=== PATIENT | female | born 1970 | race Caucasian/White ===

== ENCOUNTER 2018-03-22 12:23 | Emergency (ER) | payer OTHER, BC ==
[2018-03-22] MEDS ORDERED: Sodium Chloride 0.9% 10 ML Syringe FLUSH PRN (14:48)
[2018-03-22] MEDS ORDERED: HYDROmorphone 0.5 MG/0.5 ML SYRINGE IVPUSH ONE ×2 (14:52→18:12)
[2018-03-22] MEDS ORDERED: Metoclopramide 10 MG/2 ML SDV IVPUSH ONE (14:52)
[2018-03-22] MEDS ORDERED: Sodium Chloride 0.9% 1,000 ML IV SCH (15:00)
--- NOTE | 2018-03-22 15:17 | CT ---
Head CT Technique: Multiple axial sections through the brain were obtained. Intravenous contrast was not utilized. Comparison: No previous intracranial imaging. Findings: Ventricles along with basal cisterns and sulci with convexities are within normal limits for the patient's age. No abnormal parenchymal densities are seen. No evidence of intracranial hemorrhage. No midline shift or mass effect is seen. Bone window settings were reviewed which shows the visualized sinuses are clear. No acute calvarial abnormality is appreciated. Impression: 1. Nothing acute is seen on noncontrast head CT exam. Diagnostic code #1
--- NOTE | 2018-03-22 15:21 | CT ---
CT cervical spine Technique: Multiple axial sections were obtained from above C1 inferiorly to the mid T3 level. Reconstructed sagittal and coronal images were reviewed. Findings: Slight degenerative change is noted within the upper apophyseal joints. Mild disc space narrowing is noted at C5-6 with mild anterior osteophytes. Vertebral body heights are maintained. Slight posterior osteophytes are noted at C3-4 primarily due to the posterolateral left side. Small calcification is seen within the posterior disc at C3-4 which is felt to be degenerative. Vertebral bodies and posterior arches are intact. No fracture is seen. Mild left-sided neural foraminal stenosis noted at C2-3. Other neural foramina are patent. No bony central canal stenosis is seen. Mild scoliosis is seen. Slight degenerative change is noted within the uncovertebral joints within the left side of C2-3, C3-4 and C5-6. Impression: 1. Mild degenerative change as noted above. 2. Scoliosis. 3. Nothing acute is seen on CT study of the cervical spine. Diagnostic code #2
--- NOTE | 2018-03-22 15:33 | US ---
Left lower extremity deep venous ultrasound: Duplex and color flow imaging was obtained the left common femoral, proximal greater saphenous, superficial femoral, popliteal, posterior tibial and peroneal veins. Right common femoral vein was also evaluated. Findings: Normal phasic flow and augmentation is seen. Impression: 1. No evidence of deep venous thrombosis within the left lower extremity or within the right common femoral vein. Diagnostic code #1
[2018-03-22] MEDS ORDERED: Ketorolac 30 MG/ML SDV IVPUSH SCH (18:15)
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
== END 2018-03-22 19:10 | disposition home or self-care (01) ==
LOC: JD.ED 12:23
DX: S06.0X1A Concussion with loss of consciousness of 30 minutes or less, initial encounter (principal); S16.1XXA Strain of muscle, fascia and tendon at neck level, initial encounter; S00.03XA Contusion of scalp, initial encounter; S80.12XA Contusion of left lower leg, initial encounter; F17.210 Nicotine dependence, cigarettes, uncomplicated; Z91.030 Bee allergy status; Z88.7 Allergy status to serum and vaccine; Z88.5 Allergy status to narcotic agent; W18.00XA Striking against unspecified object with subsequent fall, initial encounter; W10.9XXA Fall (on) (from) unspecified stairs and steps, initial encounter; Y92.009 Unspecified place in unspecified non-institutional (private) residence as the place of occurrence of the external cause
CPT/HCPCS: 36415; 70450; 72125; 80053; 85025; 93971; 96361; 96374; 96375; 96376; 99284; J1170; J1885; J2765; J7040; J7050

== ENCOUNTER 2019-01-12 13:08 | Emergency (ER) | payer OTHER ==
[2019-01-12] MEDS ORDERED: Sodium Chloride 0.9% 10 ML Syringe FLUSH PRN (13:41)
[2019-01-12] MEDS ORDERED: Famotidine 20 MG/2 ML SDV IVPUSH ONE (13:43)
[2019-01-12] MEDS ORDERED: HYDROmorphone 0.5 MG/0.5 ML Syringe IVPUSH ONE ×2 (13:43→14:58)
[2019-01-12] MEDS ORDERED: methylPREDNISolone Sodium Succinate 40 MG/1 ML SDV IVPUSH ONE (13:46)
--- NOTE | 2019-01-12 13:53 | EDM.PDOC ---
ED HPI GENERAL MEDICAL PROBLEM - General Chief Complaint: Allergic Reaction Stated Complaint: POSS ALLERGIC REACTION TO MEDS/FACE SWELLING Time Seen by Provider: 01/12/19 13:19 Source of Information: Reports: Patient, Family, RN Notes Reviewed History Limitations: Reports: No Limitations - History of Present Illness INITIAL COMMENTS - FREE TEXT/NARRATIVE: Patient is a 48-year-old female who presents to the ED for the evaluation of a possible allergic reaction to some medications. The patient notes that she saw [place] neurologist in [place] and was started on some new medications yesterday. She notes that she has been on gabapentin 600 mg 3 times a day for the past week, and was given naproxen 500 mg twice a day yesterday. She took last night's naproxen dose went to bed and everything was okay, and subsequently took this a.m. naproxen dose and she states that she woke up this morning and felt as if her face was swollen, eyes were swollen and tongue were swollen and felt flushed. The patient states that she got in the shower and went about her day, and she looked in the mirror when she got out of the shower and her eyes were more swollen. The patient states she did try to take some PO Benadryl, but thought this was roughly 5 years old so was unsure if it actually had any benefit. Patient states she did use her EpiPen shortly WARP STARTER the ED. The and the patient note that her facial, eye, and tongue swelling seemed to improve after the administration of epinephrine at home. The patient's primary care provider is Helga Bowens from the [facility]. the patient further notes that she did not eat any foods that were out of the normal for her , nor does she admit to any food allergies. The patient notes that she was put on the gabapentin and naproxen for chronic back pain issues related to some disc herniation. She notes that she has issues with bladder and bowel incontinence due to her back issues. She states that she is supposed to have back surgery for this as well. She states that her back pain today is very bothersome. Treatments WARP STARTER: Reports: NSAIDS (naproxen), Other (see below) (gabapentin) Other Treatments WARP STARTER: epi pen Back Pain Score (Numeric/FACES): 10 - Related Data Allergies Allergy/AdvReac Type Severity Reaction Status Date / Time bee venom protein (honey bee) Allergy Anaphylactic Verified 03/22/18 13:36 Shock Influenza Virus Vaccines Allergy Other Verified 03/22/18 13:36 morphine Allergy Burning Verified 03/22/18 13:36 Home Meds: Home Meds Cholecalciferol (Vitamin D3) [Vitamin D3] 2,000 units PO DAILY 01/12/19 [History ] EPINEPHrine [Epinephrine] 0.3 mg IM ASDIRECTED PRN 01/12/19 [History] Gabapentin [Neurontin] 600 mg PO TID 01/12/19 [History] Naproxen [Naprosyn] 500 mg PO BID PRN 01/12/19 [History] Venlafaxine [Effexor] 37.5 mg PO DAILY 01/12/19 [History] predniSONE 20 mg PO ASDIRECTED #15 tab 01/12/19 [Rx] traMADol [Ultram] 50 mg PO Q6H PRN #35 tab 01/12/19 [Rx] Past Medical History Cardiovascular History: Reports: Heart Murmur, Other (See Below) Other Cardiovascular History: Dumont disorder, DVTs Respiratory History: Reports: PE Genitourinary History: Reports: Urinary Incontinence CARDIOPULMONARY PHYSICAL THERAPIST History: Reports: , Other (See Below) Other CARDIOPULMONARY PHYSICAL THERAPIST History: hysterectomy Musculoskeletal History: Reports: Other (See Below) Other Musculoskeletal History: herniated disc Social & Family History - Tobacco Use Smoking Status *Q: Current Every Day Smoker Years of Tobacco use: 30 Packs/Tins Daily: 0.5 - Caffeine Use Caffeine Use: Reports: Coffee, Soda - Recreational Drug Use Recreational Drug Use: No ED ROS ALLERGIC REACTION - Review of Systems Review Of Systems: See Below Constitutional: Reports: No Symptoms HEENT: Reports: Throat Swelling, Other (facial swelling, flushing, throat swelling, eye swelling.) Respiratory: Denies: Shortness of Breath, Wheezing, Cough Cardiovascular: Denies: Chest Pain Endocrine: Reports: No Symptoms GI/Abdominal: Reports: No Symptoms : Reports: No Symptoms Musculoskeletal: Reports: Back Pain (chronic low back pain) Skin: Reports: No Symptoms Neurological: Reports: No Symptoms Psychiatric: Reports: No Symptoms Hematologic/Lymphatic: Reports: No Symptoms ED EXAM GENERAL NO PERIP PULSE - Physical Exam Exam: See Below Exam Limited By: No Limitations General Appearance: Alert, WD/WN, No Apparent Distress Eye Exam: Bilateral Eye: EOMI, Normal Inspection, PERRL Ears: Normal External Exam Nose: Normal Inspection Throat/Mouth: Normal Inspection, Normal Lips, Normal Teeth, Normal Gums, Normal Oropharynx, Normal Voice, No Airway Compromise Head: Atraumatic, Normocephalic Neck: Normal Inspection, Supple Respiratory/Chest: No Respiratory Distress, Lungs Clear, Normal Breath Sounds, No Accessory Muscle Use, Chest Non-Tender Cardiovascular: Normal Peripheral Pulses, Regular Rate, Rhythm, No Murmur Extremities: Normal Inspection, Normal Capillary Refill Neurological: Alert, Oriented, Normal Cognition, No Motor/Sensory Deficits, Other (Slight tremor or tic noted, the patient and state this is not normal for her.) Psychiatric: Normal Affect, Normal Mood Skin Exam: Warm, Dry, Intact, Normal Color, No Rash Course - Vital Signs Last Recorded V/S: Last Vital Signs Temp 98.5 F 01/12/19 13:22 Pulse 88 01/12/19 13:22 Resp 24 H 01/12/19 13:22 BP 129/63 01/12/19 13:22 Pulse Ox 94 L 01/12/19 13:22 - Orders/Labs/Meds Orders: Active Orders 24 hr Category Date Time Status Peripheral IV Care [RC] . DIRECTED Care 01/12/19 13:41 Active Sodium Chloride 0.9% [Saline Flush] Med 01/12/19 13:41 Active 10 ml FLUSH ASDIRECTED PRN Peripheral IV Insertion Adult [OM.PC] Routine Oth 01/12/19 13:41 Ordered Medication Orders Sodium Chloride (Saline Flush) 10 ml FLUSH ASDIRECTED PRN PRN Reason: Keep Vein Open Last Admin: 01/12/19 14:06 Dose: 10 ml Meds: Medications Generic Name Dose Route Start Last Admin Trade Name Freq PRN Reason Stop Dose Admin Sodium Chloride 10 ml 01/12/19 13:41 01/12/19 14:06 Saline Flush FLUSH 10 ml ASDIRECTED PRN Administration Keep Vein Open Discontinued Medications Generic Name Dose Route Start Last Admin Trade Name Freq PRN Reason Stop Dose Admin Famotidine 40 mg 01/12/19 13:43 01/12/19 14:06 Pepcid IVPUSH 01/12/19 13:44 40 mg ONETIME ONE Administration Hydromorphone HCl 0.5 mg 01/12/19 13:43 01/12/19 14:04 Dilaudid IVPUSH 01/12/19 13:44 0.5 mg ONETIME ONE Administration Methylprednisolone Sodium Succinate 80 mg 01/12/19 13:46 01/12/19 14:02 Solu-Medrol IVPUSH 01/12/19 13:47 80 mg ONETIME ONE Administration - Re-Assessments/Exams Free Text/Narrative Re-Assessment/Exam: 01/12/19 13:55 Patient presents to the ED for evaluation of a possible allergic reaction. I have ordered an IV to be placed, 40 mg famotidine, 80 mg Solu-Medrol, 0.5 mg IV Dilaudid for initial management. I will likely send the patient home with a new prescription for EpiPen's, and something different for her back pain and a burst of prednisone until [facility] 01/12/19 14:41 Patient was reassessed at bedside and states she feels much better. I will discharge her home with general instructions. She states that she does have extra EpiPens available, and would [facility]. I will send her with a prescription for prednisone and tramadol. Patient has been hemodynamically stable while under my care in ED today, and is hemodynamically stable upon discharge. Departure - Departure Time of Disposition: 14:42 Disposition: Home, Self-Care 01 Condition: Fair Clinical Impression: Allergic reaction caused by a drug Qualifiers: Encounter type: initial encounter Qualified Code(s): T78.40XA - Allergy, unspecified, initial encounter Back pain Qualifiers: Back pain location: low back pain Chronicity: chronic Back pain laterality: bilateral Sciatica presence: without sciatica Qualified Code(s): M54.5 - Low back pain - Discharge Information *PRESCRIPTION DRUG MONITORING PROGRAM REVIEWED*: No *COPY OF PRESCRIPTION DRUG MONITORING REPORT IN PATIENT BERE: No Prescriptions: predniSONE 20 mg PO ASDIRECTED #15 tab traMADol [Ultram] 50 mg PO Q6H PRN #35 tab PRN Reason: Pain Instructions: Anaphylactic Reaction, Adult, Epinephrine Injection Referrals: Helga Bowens MD [Primary Care Provider] - Forms: ED Department Discharge Additional Instructions: You have been evaluated in the ED for your allergic reaction. It is likely that your reaction may be due to the naproxen that you were started on yesterday by the neurologist. You have been given a prescription for a 2 different medications: (these have been electronically sent to the [facility]) #1: Prednisone as directed, 60mg (3 tabs) daily for days 1-2-3, then 40mg (2 tabs) daily for days 4-5-6. #2: Tramadol 50mg, Please take 1-2 tabs every 6 hours as needed for back pain ( you have only been given enough for a 1 week supply if you take 2 tabs as directed.) Recommend that you take an OTC medication like Pepcid (famotidine, 40mg) while you are taking the prednisone for GI protection, and the steroids can be a little harsh on the stomach. Also recommend that you increase her oral fluid intake, and a stool softener like MiraLAX while you are taking tramadol as they can be quite constipating. Recommend that you follow up with your primary provider through the [facility] at your earliest convenience to discuss a change in medication for your back pain. DO NOT TAKE THE NAPROXEN THAT YOU RECEIVED THROUGH NEUROLOGY AT THE [place] IN [place]. Please return to the ED if your symptoms should change or worsen. - My Orders Last 24 Hours: My Active Orders 01/12/19 13:41 Peripheral IV Care [RC] . DIRECTED Sodium Chloride 0.9% [Saline Flush] 10 ml FLUSH ASDIRECTED PRN Peripheral IV Insertion Adult [OM.PC] Routine - Assessment/Plan Last 24 Hours: My Active Orders 01/12/19 13:41 Peripheral IV Care [RC] . DIRECTED Sodium Chloride 0.9% [Saline Flush] 10 ml FLUSH ASDIRECTED PRN Peripheral IV Insertion Adult [OM.PC] Routine
== END 2019-01-12 15:17 | disposition home or self-care (01) ==
LOC: JD.ED 13:08
DX: R22.0 Localized swelling, mass and lump, head (principal); T42.6X5A Adverse effect of other antiepileptic and sedative-hypnotic drugs, initial encounter; M54.5 Low back pain; F17.210 Nicotine dependence, cigarettes, uncomplicated; Z79.899 Other long term (current) drug therapy; Z91.030 Bee allergy status
CPT/HCPCS: 96374; 96375; 96376; 99284; J1170; J2920; J3490

== ENCOUNTER 2021-10-21 13:34 | Emergency (ER) | payer OTHER ==
[2021-10-21] MEDS ORDERED: Cyclobenzaprine 10 MG Tab PO ONE (14:13)
[2021-10-21] MEDS ORDERED: HYDROmorphone 1 MG/ML Syringe IM ONE (14:13)
== END 2021-10-21 16:16 | disposition home or self-care (01) ==
LOC: JD.ED 13:34
DX: M54.50 Low back pain, unspecified (principal); Z91.030 Bee allergy status; Z88.7 Allergy status to serum and vaccine; Z88.5 Allergy status to narcotic agent; Z72.0 Tobacco use
CPT/HCPCS: 36415; 72100; 80053; 82247; 82248; 82977; 83690; 85025; 96372; 99283; A9270; J1170; 99284